=== PATIENT | male | born 1960 | race African-American/Black ===

== ENCOUNTER 2023-07-04 10:19 | Emergency (ER) | payer MEDICAID ==
[~2023-07-04] VITALS: Ht 190.5 cm; Wt 95.0 kg
[2023-07-04 10:22] VITALS: TEMP 98.7; O2SAT 99
[2023-07-04] MEDS ORDERED: TOPUD PO (11:32)
[2023-07-04] MEDS: ACETAMINOPHEN 325MG TABLET PO ONE (12:06)
[2023-07-04 12:07] VITALS: BP 93/54; PULSE 81; RESP 18
== END 2023-07-04 12:52 | disposition home or self-care (01) ==
LOC: ER 12:42
DX: S80.212A Abrasion, left knee, initial encounter (principal); M25.562 Pain in left knee; M25.561 Pain in right knee; G43.909 Migraine, unspecified, not intractable, without status migrainosus; W18.39XA Other fall on same level, initial encounter; Y93.89 Activity, other specified; Y92.89 Other specified places as the place of occurrence of the external cause; Y99.8 Other external cause status
CPT/HCPCS: 73560; 99283

== ENCOUNTER 2023-09-19 03:41 | Emergency (ER) | payer MEDICAID ==
[~2023-09-19] VITALS: Ht 188 cm; Wt 100.0 kg
[~2023-09-19 03:41] MED LIST: TOPUD PO
[2023-09-19 03:42] VITALS: O2SAT 98
[2023-09-19 04:00] VITALS: BP 169/101; PULSE 83; RESP 16; TEMP 98.2
[2023-09-19 04:54] LABS: BASOPHILS % 0.5 % (0.0-2.0); CARBON DIOXIDE 26 mEq/L (21-32); CHLORIDE 109 mEq/L (98-107); EOSINOPHILS % 2.4 % (0.0-5.0); HEMATOCRIT. 42.4 % (42.0-52.0); HEMOGLOBIN. 14.8 g/dL (14.0-18.0); LYMPHOCYTES % 22.2 % (20.0-50.0); MEAN CORPUSCULAR HEMOGLOBIN 32.8 pg (28.0-32.0); MEAN CORPUSCULAR HGB CONC 34.9 g/dL (31.0-37.0); MONOCYTES % 6.4 % (2.0-8.0); NEUTROPHILS % 68.5 % (40.0-76.0); PLATELET 107 x1000/uL (130-400); POTASSIUM 4.5 mEq/L (3.5-5.1); RED BLOOD CELL COUNT 4.51 mill/uL (4.7-6.1); RED CELL DISTRIBUTION WIDTH 13.4 % (11.6-14.6); SODIUM 143 mEq/L (136-145); WHITE BLOOD COUNT 10.2 x1000/uL (4.5-11.0)
[2023-09-19 04:55] LABS: CALCIUM 9.2 mg/dL (8.7-10.4)
[2023-09-19 05:00] LABS: CARBAMAZEPINE 5.4 ug/mL (4-12); CREATININE 1.4 mg/dL (0.6-1.3); GLUCOSE 106 mg/dL (70-105); UREA NITROGEN BLOOD 18 mg/dL (9-23)
[2023-09-19 05:01] LABS: VALPROIC ACID 68.5 ug/mL (50-100)
[2023-09-19 05:08] LABS: PHENYTOIN < 2.0 ug/mL (10-20)
[2023-09-19] MEDS: PHENYTOIN SODIUM EXTENDED 100MG CAPSULE PO NR (06:04)
== END 2023-09-19 07:11 | disposition home or self-care (01) ==
LOC: ER 03:49
DX: R56.9 Unspecified convulsions (principal)
CPT/HCPCS: 36415; 80048; 80156; 80165; 80185; 85025; 93005; 99284

== ENCOUNTER 2025-02-05 11:23 | Emergency (ER) | payer MEDICAID ==
[~2025-02-05] VITALS: Ht 190.5 cm; Wt 100.0 kg
[2025-02-05 11:30] VITALS: O2SAT 98
[2025-02-05 13:31] VITALS: BP 121/74; PULSE 85; RESP 18; TEMP 37.1; O2SAT 98
== END 2025-02-05 13:32 | disposition home or self-care (01) ==
LOC: ER 12:16
DX: R05.9 Cough, unspecified (principal); G40.909 Epilepsy, unspecified, not intractable, without status epilepticus; Z90.49 Acquired absence of other specified parts of digestive tract; Z20.822 Contact with and (suspected) exposure to COVID-19
CPT/HCPCS: 71045; 87426; 99284